=== PATIENT | male | born 1995 | race African-American/Black ===

== ENCOUNTER 2023-03-27 17:49 | Emergency (ER) | payer SELFPAY ==
[~2023-03-27] VITALS: Ht 175.3 cm; Wt 76.4 kg
[2023-03-27 17:52] VITALS: TEMP 98.6
[2023-03-27] MEDS ORDERED: AMOX250C4 PO (18:35)
[2023-03-27] MEDS ORDERED: BACITRACIN 0.9 GM PACKET OINTMENT TP ONE (19:30)
[2023-03-27] MEDS ORDERED: PERTUSS(ACELL),DIPH,TET VAC/PF 0.5 ML SYRINGE IM. ONE (19:30)
[2023-03-27] MEDS ORDERED: AMOXICILLIN TRIHYDRATE 250 MG CAPSULE PO ONE (19:30)
[2023-03-27 19:42] VITALS: BP 122/64; PULSE 67; RESP 16
[2023-03-30 13:07] LABS: HEPATITIS C AB (EIA) Non Reactive (Non Reactive)
== END 2023-03-27 19:37 | disposition home or self-care (01) ==
LOC: EMS 17:54
DX: S01.451A Open bite of right cheek and temporomandibular area, initial encounter (principal); W50.3XXA Accidental bite by another person, initial encounter; Y93.89 Activity, other specified; Y92.89 Other specified places as the place of occurrence of the external cause; Y99.8 Other external cause status
CPT/HCPCS: 84460; 86706; 86803; 87340; 90471; 90715; 99283